=== PATIENT | male | born 1975 | race African-American/Black ===

== ENCOUNTER 2020-05-11 06:54 | Emergency (ER) | payer OTHER ==
[~2020-05-11] VITALS: Ht 182.9 cm; Wt 100.0 kg
[2020-05-11 07:17] VITALS: BP 142/88
== END 2020-05-11 08:18 | disposition home or self-care (01) ==
LOC: ER 06:54
DX: Z13.9 Encounter for screening, unspecified (principal); I10 Essential (primary) hypertension
CPT/HCPCS: 82962; 99283